=== PATIENT | male | born 1990 | race Caucasian/White ===

== ENCOUNTER 2021-10-03 10:47 | Outpatient (REF) | payer MEDICAID, SELFPAY ==
[2021-10-05 19:38] LABS: COVID-19 RT-PCR UVMMC Result Positive (Negative)
== END 2021-10-03 10:48 | disposition home or self-care (01) ==
LOC: NCHCN 10:47
PROVIDERS: Visit Provider Internal Medicine
DX: Z20.822 Contact with and (suspected) exposure to COVID-19 (principal)
CPT/HCPCS: U0003